=== PATIENT | female | born 1995 | race Caucasian/White ===

== ENCOUNTER 2022-02-15 17:54 | Emergency (ER) | payer OTHER ==
[2022-02-15] MEDS ORDERED: Lidocaine 1% PF 5 ML VIAL ONE ×2 (19:04→19:30)
== END 2022-02-15 20:11 | disposition home or self-care (01) ==
LOC: ERS 17:54
DX: S61.012A Laceration without foreign body of left thumb without damage to nail, initial encounter (principal); S60.413A Abrasion of left middle finger, initial encounter; Z79.899 Other long term (current) drug therapy; W26.0XXA Contact with knife, initial encounter
CPT/HCPCS: 12001